=== PATIENT | male | born 1975 | race African-American/Black ===

== ENCOUNTER 2017-05-09 01:21 | Inpatient (IN) | payer SELFPAY, OTHER ==
[2017-05-09] MEDS ORDERED: ISOVUE-370 76% 100ML VIAL (Q9967) As Ordered (01:26)
[2017-05-09] MEDS: NS 1,000 ML IV (01:30)
[2017-05-09 01:35] LABS: VENOUS BASE EXCESS -1.3 (-2.0-2.0); VENOUS HCO3 27.8 MEQ/L (23.0-27.0); VENOUS O2 SATURATION 57.2 % (60.0-80.0); VENOUS PARTIAL PRESSURE CO2 64.2 mmHg (38.0-50.0); VENOUS PARTIAL PRESSURE O2 33.8 mmHg (30.0-50.0); VENOUS PH 7.254 UNITS (7.330-7.430); VENOUS STANDARD HCO3 22.2 MEQ/L; VENOUS TOTAL CO2 29.7 MEQ/L (24.0-28.0)
[2017-05-09 01:37] LABS: BASO # 0.1 10^3/uL (0.0-0.2); BASO % 0.3 % (0.0-1.0); EOS # 0.3 10^3/uL (0.0-0.50); EOS % 1.4 % (0.0-3.0); HEMATOCRIT 47.9 % (42.0-52.0); HEMOGLOBIN 16.3 g/dl (14.0-18.0); IMMATURE GRANULOCYTE # 0.1 10^3/uL (0-0); IMMATURE GRANULOCYTE % 0.6 % (0-0); LYMPH # 4.1 10^3/uL (1.5-4.5); LYMPH % 19.6 % (24.0-44.0); MEAN CORPUSCULAR HEMOGLOBIN 31.7 pg (27.0-33.0); MEAN CORPUSCULAR VOLUME 93.2 fl (80.0-96.0); MONO # 1.5 10^3/uL (0.0-0.8); MONO % 7.2 % (0.0-5.0); NEUTROPHILS % 70.9 % (36.0-66.0); PLATELET COUNT, AUTOMATED 358 10^3/uL (150-450); RED BLOOD COUNT 5.14 10^6/uL (4.30-6.10); RED CELL DISTRIBUTION WIDTH 11.5 % (11.5-14.5); WHITE BLOOD COUNT 21.1 10^3/uL (4.0-10.0)
[2017-05-09 01:59] LABS: INR 1.01; PARTIAL THROMBOPLASTIN TIME 24.5 SECONDS (26.8-37.9); PROTHROMBIN TIME 13.4 SECONDS (12.4-14.5)
[2017-05-09 02:02] LABS: ALBUMIN 4.5 GM/DL (3.2-5.2); ALBUMIN/GLOBULIN RATIO 1.18 (1.00-1.93); ALKALINE PHOSPHATASE 121 U/L (45-117); ALT/SGPT 28 U/L (12-78); AMYLASE 113 U/L (25-115); ANION GAP 9 MEQ/L (8-16); AST/SGOT 25 U/L (7-37); BILIRUBIN,DIRECT 0.1 MG/DL (0.0-0.2); BILIRUBIN,TOTAL 0.4 MG/DL (0.2-1.0); BLOOD UREA NITROGEN 6 MG/DL (7-18); CALCIUM LEVEL 8.2 MG/DL (8.5-10.1); CARBON DIOXIDE LEVEL 25 MEQ/L (21-32); CHLORIDE LEVEL 111 MEQ/L (98-107); CPK CREATINE PHOSPHOKINASE 211 U/L (39-308); CREATININE FOR GFR 0.89 MG/DL (0.70-1.30); ETHYL ALCOHOL (ETHANOL) 0.285 % (0.000-0.010); GLOMERULAR FILTRATION RATE > 60.0 (>60); GLUCOSE, FASTING 150 MG/DL (70-105); LIPASE 134 U/L (73-393); POTASSIUM SERUM 3.4 MEQ/L (3.5-5.1); SODIUM LEVEL 145 MEQ/L (136-145); TOTAL PROTEIN 8.3 GM/DL (6.4-8.2); TROPONIN I < 0.02 NG/ML (< 0.10)
[2017-05-09 02:03] LABS: CK-MB VALUE MASS 3.5 NG/ML (0.0-3.6); MB/CK RELATIVE INDEX 1.65 (< OR =4)
[2017-05-09 02:05] LABS: LACTIC ACID SEPSIS PROTOCOL 2.7 MMOL/L (0.4-2.0)
[2017-05-09] MEDS: fentaNYL 100 MCG/2 ML INJECTION (J3010) IV ×2 (02:12→03:30)
[2017-05-09] MEDS: ONDANSETRON 4MG/2ML VIAL (J2405) IV ×2 (02:13→09:47)
[2017-05-09 02:14] LABS: ABG HCO3 18.6 MEQ/L (22.0-26.0); ABG O2 SATURATION 99.1 % (95.0-99.0); ABG PARTIAL PRESSURE CO2 38.1 mmHg (35.0-45.0); ABG PARTIAL PRESSURE O2 168.3 mmHg (75.0-100.0); ABG STANDARD HCO3 18.9 MEQ/L (22.0-26.0); ABG TOTAL CO2 19.8 MEQ/L (22.0-29.0); ABG pH (ARTERIAL) 7.307 UNITS (7.350-7.450)
[2017-05-09] MEDS: TETANUS/DIPHTHERIA TOX ADSORB ADULT 0.5ML SYR/VIAL (90714) IM (02:30)
[2017-05-09] MEDS ORDERED: LIDOCAINE 1% SDV INJ 30 ML VIAL SC (02:45)
[2017-05-09] MEDS: MIDAZOLAM INJ 2 MG/2 ML VIAL (J2250) IV (02:50)
[2017-05-09] MEDS: LIDOCAINE 1% MDV 20ML VIAL SC (03:21)
[2017-05-09] MEDS ORDERED: BISACODYL 10 MG SUPP PR (03:30)
[2017-05-09] MEDS ORDERED: LEVALBUTEROL 1.25 MG/0.5 ML CONCENTRATE NEB NEB (03:30)
[2017-05-09] MEDS ORDERED: ACETAMINOPHEN TAB 650MG DOSE (2X325MG) PO (03:30)
[2017-05-09] MEDS: KCL 20MEQ IN D5/NS 1000ML 1,000 ML IV ×2 (04:08→17:06)
[2017-05-09] MEDS: PERCOCET 5MG/325MG TAB PO ×4 (04:12→19:10)
[2017-05-09 04:26] LABS: BASO % 0.2 % (0.0-1.0); EOS % 0.1 % (0.0-3.0); HEMATOCRIT 47.6 % (42.0-52.0); HEMOGLOBIN 16.2 g/dl (14.0-18.0); IMMATURE GRANULOCYTE # 0.1 10^3/uL (0-0); IMMATURE GRANULOCYTE % 0.5 % (0-0); LYMPH # 1.4 10^3/uL (1.5-4.5); MEAN CORPUSCULAR HEMOGLOBIN 31.8 pg (27.0-33.0); MEAN CORPUSCULAR VOLUME 93.3 fl (80.0-96.0); MONO # 1.6 10^3/uL (0.0-0.8); MONO % 8.2 % (0.0-5.0); NEUTROPHILS # 16.2 10^3/uL (1.8-7.7); PLATELET COUNT, AUTOMATED 353 10^3/uL (150-450); RED CELL DISTRIBUTION WIDTH 11.5 % (11.5-14.5); WHITE BLOOD COUNT 19.3 10^3/uL (4.0-10.0)
[2017-05-09 04:41] LABS: ANION GAP 9 MEQ/L (8-16); BLOOD UREA NITROGEN 5 MG/DL (7-18); CALCIUM LEVEL 7.7 MG/DL (8.5-10.1); CARBON DIOXIDE LEVEL 26 MEQ/L (21-32); CHLORIDE LEVEL 110 MEQ/L (98-107); CREATININE FOR GFR 0.76 MG/DL (0.70-1.30); GLOMERULAR FILTRATION RATE > 60.0 (>60); GLUCOSE, FASTING 94 MG/DL (70-105); POTASSIUM SERUM 3.6 MEQ/L (3.5-5.1); SODIUM LEVEL 145 MEQ/L (136-145)
[2017-05-09] MEDS: KETOROLAC 30 MG/ML VIAL (J1885) IV ×3 (05:01→17:05)
[2017-05-09] MEDS: CEFAZOLIN SOD 1 GM in APPROPRIATE DILUENT 1 EA IV ×3 (05:11→21:25)
[2017-05-09 06:19] LABS: ABG BASE EXCESS -8.4 (-2.0-2.0); ABG HCO3 16.6 MEQ/L (22.0-26.0); ABG O2 SATURATION 99.1 % (95.0-99.0); ABG PARTIAL PRESSURE CO2 33.2 mmHg (35.0-45.0); ABG PARTIAL PRESSURE O2 155.8 mmHg (75.0-100.0); ABG STANDARD HCO3 17.8 MEQ/L (22.0-26.0); ABG TOTAL CO2 17.6 MEQ/L (22.0-29.0); ABG pH (ARTERIAL) 7.317 UNITS (7.350-7.450)
[2017-05-09] MEDS: NORCO, ANEXSIA 5/325MG TABLET (HYDROcodone/ACETAMINOPHEN) PO ×3 (07:51→17:06)
[2017-05-09] MEDS: LEVALBUTEROL 1.25 MG/0.5 ML CONCENTRATE NEB NEB ×3 (08:00→19:24)
[2017-05-09] MEDS: HEPARIN SOD (PORCINE) 5000 UNITS/ML VIAL SC ×2 (08:52→21:25)
[2017-05-09] MEDS: DOCUSATE SODIUM 100 MG CAP PO ×2 (08:57→21:26)
[2017-05-09] MEDS: PANTOPRAZOLE 40MG TAB (PROTONIX) PO (08:57)
[2017-05-09] MEDS: MOM 30ML SUSPENSION UDC PO (08:57)
[2017-05-09 12:44] LABS: LACTIC ACID SEPSIS PROTOCOL 2.3 MMOL/L (0.4-2.0)
[2017-05-09 13:07] LABS: AMYLASE 97 U/L (25-115); LIPASE 86 U/L (73-393)
[2017-05-09] MEDS ORDERED: KCL 20MEQ IN D5/0.9%NACL 1000 ML As Ordered (16:58)
[2017-05-10] MEDS: KCL 20MEQ IN D5/NS 1000ML 1,000 ML IV ×2 (00:26→09:00)
[2017-05-10] MEDS: KETOROLAC 30 MG/ML VIAL (J1885) IV ×4 (00:27→17:29)
[2017-05-10] MEDS: PERCOCET 5MG/325MG TAB PO ×5 (00:29→20:46)
[2017-05-10] MEDS: LEVALBUTEROL 1.25 MG/0.5 ML CONCENTRATE NEB NEB ×4 (02:00→19:46)
[2017-05-10 03:34] LABS: AMPHETAMINES URINE REFLEX NEGATIVE (NEGATIVE); BARBITURATES URINE REFLEX NEGATIVE (NEGATIVE); COCAINE METABOLITE URINE REFLE NEGATIVE (NEGATIVE); METHADONE URINE REFLEX NEGATIVE (NEGATIVE); PHENCYCLIDINE URINE REFLEX NEGATIVE (NEGATIVE)
[2017-05-10 03:36] LABS: BENZODIAZEPINES URINE REFLEX POSITIVE (NEGATIVE); CANNABINOIDS URINE REFLEX POSITIVE (NEGATIVE); OPIATES URINE REFLEX POSITIVE (NEGATIVE)
[2017-05-10 03:51] LABS: KETONE, URINE AUTO RFX 1+ mg/dL (NEGATIVE); LEUKOCYTE ESTERASE UR AUTO RFX NEGATIVE (NEGATIVE); MUCUS, URINE RFX SMALL (NEGATIVE); NITRITE, URINE AUTO RFX NEGATIVE (NEGATIVE); RBC, URINE AUTO RFX 3 /HPF (0-3); SPECIFIC GRAVITY UR AUTO RFX 1.025 (1.002-1.035); SQUAM EPITHELIAL CELL UR AURFX 0 /HPF (0-6); WBC, URINE AUTO RFX 1 /HPF (0-3)
[2017-05-10 04:34] LABS: BASO % 0.1 % (0.0-1.0); EOS # 0.1 10^3/uL (0.0-0.50); EOS % 1.1 % (0.0-3.0); HEMATOCRIT 40.9 % (42.0-52.0); IMMATURE GRANULOCYTE % 0.1 % (0-0); LYMPH # 2.5 10^3/uL (1.5-4.5); LYMPH % 30.7 % (24.0-44.0); MEAN CORPUSCULAR HEMOGLOBIN 31.6 pg (27.0-33.0); MEAN CORPUSCULAR HGB CONC 34.5 g/dl (32.0-36.5); MEAN CORPUSCULAR VOLUME 91.7 fl (80.0-96.0); MONO % 12.2 % (0.0-5.0); NEUTROPHILS # 4.4 10^3/uL (1.8-7.7); NEUTROPHILS % 55.8 % (36.0-66.0); PLATELET COUNT, AUTOMATED 268 10^3/uL (150-450); RED BLOOD COUNT 4.46 10^6/uL (4.30-6.10); RED CELL DISTRIBUTION WIDTH 11.5 % (11.5-14.5)
[2017-05-10 04:46] LABS: HEMOGLOBIN 14.1 g/dl (14.0-18.0)
[2017-05-10 04:55] LABS: ANION GAP 7 MEQ/L (8-16); BLOOD UREA NITROGEN 8 MG/DL (7-18); CALCIUM LEVEL 7.6 MG/DL (8.5-10.1); CARBON DIOXIDE LEVEL 27 MEQ/L (21-32); CHLORIDE LEVEL 112 MEQ/L (98-107); CREATININE FOR GFR 0.69 MG/DL (0.70-1.30); GLOMERULAR FILTRATION RATE > 60.0 (>60); GLUCOSE, FASTING 94 MG/DL (70-105); POTASSIUM SERUM 4.1 MEQ/L (3.5-5.1); SODIUM LEVEL 146 MEQ/L (136-145)
[2017-05-10] MEDS: CEFAZOLIN SOD 1 GM in APPROPRIATE DILUENT 1 EA IV ×2 (06:10→13:33)
[2017-05-10] MEDS: DOCUSATE SODIUM 100 MG CAP PO ×2 (07:58→20:45)
[2017-05-10] MEDS: NORCO, ANEXSIA 5/325MG TABLET (HYDROcodone/ACETAMINOPHEN) PO ×2 (07:59→13:38)
[2017-05-10] MEDS: MOM 30ML SUSPENSION UDC PO (07:59)
[2017-05-10] MEDS: PANTOPRAZOLE 40MG TAB (PROTONIX) PO (07:59)
[2017-05-10] MEDS: HEPARIN SOD (PORCINE) 5000 UNITS/ML VIAL SC ×2 (07:59→20:46)
[2017-05-11] MEDS: KETOROLAC 30 MG/ML VIAL (J1885) IV ×4 (00:37→12:00)
[2017-05-11] MEDS: zolPIDEM TARTRATE 5 MG TAB PO (00:38)
[2017-05-11] MEDS: LEVALBUTEROL 1.25 MG/0.5 ML CONCENTRATE NEB NEB ×2 (02:00→08:00)
[2017-05-11] MEDS: PERCOCET 5MG/325MG TAB PO ×2 (04:56→09:31)
[2017-05-11 05:06] LABS: BASO % 0.3 % (0.0-1.0); EOS # 0.1 10^3/uL (0.0-0.50); EOS % 1.8 % (0.0-3.0); HEMATOCRIT 43.1 % (42.0-52.0); HEMOGLOBIN 14.9 g/dl (14.0-18.0); IMMATURE GRANULOCYTE % 0.2 % (0-0); LYMPH # 2.9 10^3/uL (1.5-4.5); LYMPH % 42.9 % (24.0-44.0); MEAN CORPUSCULAR HEMOGLOBIN 31.4 pg (27.0-33.0); MEAN CORPUSCULAR HGB CONC 34.6 g/dl (32.0-36.5); MEAN CORPUSCULAR VOLUME 90.9 fl (80.0-96.0); MONO # 0.8 10^3/uL (0.0-0.8); MONO % 11.3 % (0.0-5.0); NEUTROPHILS # 2.9 10^3/uL (1.8-7.7); NEUTROPHILS % 43.5 % (36.0-66.0); PLATELET COUNT, AUTOMATED 270 10^3/uL (150-450); RED BLOOD COUNT 4.74 10^6/uL (4.30-6.10); RED CELL DISTRIBUTION WIDTH 11.3 % (11.5-14.5); WHITE BLOOD COUNT 6.7 10^3/uL (4.0-10.0)
[2017-05-11 05:24] LABS: ANION GAP 6 MEQ/L (8-16); BLOOD UREA NITROGEN 8 MG/DL (7-18); CALCIUM LEVEL 8.3 MG/DL (8.5-10.1); CARBON DIOXIDE LEVEL 28 MEQ/L (21-32); CHLORIDE LEVEL 107 MEQ/L (98-107); CREATININE FOR GFR 0.81 MG/DL (0.70-1.30); GLOMERULAR FILTRATION RATE > 60.0 (>60); GLUCOSE, FASTING 83 MG/DL (70-105); POTASSIUM SERUM 3.7 MEQ/L (3.5-5.1); SODIUM LEVEL 141 MEQ/L (136-145)
[2017-05-11] MEDS: HEPARIN SOD (PORCINE) 5000 UNITS/ML VIAL SC (09:00)
[2017-05-11] MEDS: DOCUSATE SODIUM 100 MG CAP PO (09:31)
[2017-05-11] MEDS: MOM 30ML SUSPENSION UDC PO (09:31)
[2017-05-11] MEDS: PANTOPRAZOLE 40MG TAB (PROTONIX) PO (09:31)
== END 2017-05-11 14:24 | disposition home or self-care (01) | DRG 135 ==
LOC: M PCU 05-11 06:39 → M ED 01:21 → M ED INP 03:20 → M ICU 03:46
PROC: 0W9930Z Drainage of Right Pleural Cavity with Drainage Device, Percutaneous Approach (ICD-10-PCS; principal; 2017-05-09)
DX: S27.0XXA Traumatic pneumothorax, initial encounter (principal); F17.210 Nicotine dependence, cigarettes, uncomplicated; S27.331A Laceration of lung, unilateral, initial encounter; S02.2XXA Fracture of nasal bones, initial encounter for closed fracture; F10.129 Alcohol abuse with intoxication, unspecified; E87.2 Acidosis; F12.10 Cannabis abuse, uncomplicated; X99.1XXA Assault by knife, initial encounter; Y93.89 Activity, other specified; Y99.9 Unspecified external cause status; Y92.9 Unspecified place or not applicable

== ENCOUNTER 2017-05-11 18:19 | Emergency (ER) | payer OTHER, MEDICAID, SELFPAY ==
[2017-05-11 18:56] LABS: BASO % 0.2 % (0.0-1.0); EOS # 0.1 10^3/uL (0.0-0.50); EOS % 0.8 % (0.0-3.0); HEMATOCRIT 43.2 % (42.0-52.0); HEMOGLOBIN 15.1 g/dl (14.0-18.0); IMMATURE GRANULOCYTE % 0.2 % (0-0); LYMPH # 1.9 10^3/uL (1.5-4.5); LYMPH % 19.4 % (24.0-44.0); MEAN CORPUSCULAR HEMOGLOBIN 31.5 pg (27.0-33.0); MONO # 0.9 10^3/uL (0.0-0.8); MONO % 9.6 % (0.0-5.0); NEUTROPHILS # 6.8 10^3/uL (1.8-7.7); NEUTROPHILS % 69.8 % (36.0-66.0); PLATELET COUNT, AUTOMATED 277 10^3/uL (150-450); RED CELL DISTRIBUTION WIDTH 11.2 % (11.5-14.5); WHITE BLOOD COUNT 9.8 10^3/uL (4.0-10.0)
[2017-05-11 19:27] LABS: ANION GAP 8 MEQ/L (8-16); BLOOD UREA NITROGEN 10 MG/DL (7-18); CALCIUM LEVEL 8.9 MG/DL (8.5-10.1); CARBON DIOXIDE LEVEL 26 MEQ/L (21-32); CHLORIDE LEVEL 105 MEQ/L (98-107); CPK CREATINE PHOSPHOKINASE 386 U/L (39-308); CREATININE FOR GFR 0.89 MG/DL (0.70-1.30); GLOMERULAR FILTRATION RATE > 60.0 (>60); GLUCOSE, FASTING 88 MG/DL (70-105); POTASSIUM SERUM 4.1 MEQ/L (3.5-5.1); SODIUM LEVEL 139 MEQ/L (136-145); TROPONIN I < 0.02 NG/ML (< 0.10)
[2017-05-11 19:29] LABS: NT-PRO BNP 179 PG/ML (<125)
[2017-05-11] MEDS: ASPIRIN 325 MG TAB PO (19:30)
[2017-05-11 19:33] LABS: CK-MB VALUE MASS 2.4 NG/ML (0.0-3.6); MB/CK RELATIVE INDEX 0.62 (< OR =4)
[2017-05-11] MEDS: IPRATROPIUM 0.5MG/ALBUTEROL 2.5MG INH SOL UD 3ML (DUONEB)(J7620) NEB (19:46)
[2017-05-11] MEDS ORDERED: ISOVUE-370 76% 100ML VIAL (Q9967) As Ordered (19:58)
== END 2017-05-11 21:47 | disposition left against medical advice (07) ==
LOC: M ED 18:19
DX: R06.02 Shortness of breath (principal); F17.200 Nicotine dependence, unspecified, uncomplicated; J45.909 Unspecified asthma, uncomplicated
CPT/HCPCS: Q9967